=== PATIENT | female | born 1990 | race Caucasian/White ===

== ENCOUNTER 2022-02-15 08:00 | Outpatient (CLI) | payer OTHER ==
[2022-02-15 18:17] LABS: BASOPHILS # (AUTO) 0.1 10^3/uL (0.0-0.1); BASOPHILS % (AUTO) 0.8 %; EOSINOPHILS % (AUTO) 0.4 %; HCT - HEMATOCRIT 41.9 % (37.0-47.0); HGB - HEMOGLOBIN 13.3 g/dL (12.0-16.0); LYMPHOCYTES # (AUTO) 2.7 10^3/uL (1.5-3.5); LYMPHOCYTES % (AUTO) 32.2 %; MEAN CORPUSCULAR HEMOGLOBIN 29.3 pg (27.0-31.0); MEAN CORPUSCULAR HGB CONC 31.7 g/dL (32.0-36.0); MEAN CORPUSCULAR VOLUME 92.3 fL (81.0-99.0); MEAN PLATELET VOLUME 10.3 fL (7.9-10.8); MONOCYTES # (AUTO) 0.5 10^3/uL (0.0-1.0); MONOCYTES % (AUTO) 5.6 %; NEUTROPHILS # (AUTO) 5.1 10^3/uL (1.5-6.6); NEUTROPHILS % (AUTO) 60.8 %; PLT - PLATELET COUNT 514 10^3/uL (130-450); RED BLOOD COUNT 4.54 10^6/uL (4.20-5.40); RED CELL DISTRIBUTION WIDTH 12.8 % (12.0-15.0); WHITE BLOOD COUNT 8.5 x10^3/uL (4.8-10.8)
== END 2022-02-15 23:59 | disposition home or self-care (01) ==
LOC: LAB.N 08:00
PROVIDERS: ATTEND Physician Assistant
DX: R53.83 Other fatigue (principal)
CPT/HCPCS: 36415; 85025

== ENCOUNTER 2022-05-14 06:57 | Outpatient (CLI) | payer OTHER ==
[2022-05-14] MEDS ORDERED: GADOBUTROL 10 MMOL/10 ML VIAL ONE (07:12)
--- NOTE | 2022-05-14 12:07 | MRI Report ---
PROCEDURE: BRAIN W/WO INDICATIONS: DIZZINESS CONTRAST: gadavist 10ml TECHNIQUE: Noncontrast axial T1 spin echo, axial T2 fast spin echo, sagittal and axial FLAIR, coronal T2 fast sp in echo, axial gradient echo, axial diffusion and ADC through the brain. After the administration of contrast, axial and coronal T1 spin echo with fat saturation through the brain. COMPARISON: None. FINDINGS: Image quality: Excellent. CSF spaces: Basal cisterns are patent. No extra-axial fluid collections. Ventricles are normal in size and shape. Brain: No midline shift. No intracranial bleeds or masses. No abnormal intracranial enhancement. There is cerebral volume loss for age. There is periventricular white matter chronic small vessel is chemic change. The brainstem appears normal. Diffusion-weighted images demonstrate no acute ischemi c insults. No chronic ischemic insults. Normal intravascular flow voids are present. Skull and face: Calvarial marrow is normal in signal. Orbits appear normal. Sinuses: Sinuses and mastoids appear clear. IMPRESSION: 1. No acute intracranial abnormality. No explanation for dizziness. 2. No acute process. No recent infarct. Reviewed by: Lynnette Nguyễn MD on 05/14/2022 12:06 PM PDT Approved by: Lynnette Nguyễn MD on 05/14/2022 12:06 PM PDT Station ID: [id number]
[2022-05-14] MEDS ORDERED: GADOBUTROL 10 MMOL/10 ML VIAL IVP ONE (12:24)
== END 2022-05-14 06:58 | disposition home or self-care (01) ==
LOC: DI 06:57
PROVIDERS: ATTEND Student in an Organized Health Care Education/Training Program
DX: R42 Dizziness and giddiness (principal); R09.81 Nasal congestion
CPT/HCPCS: 70553; A9585

== ENCOUNTER 2022-07-02 14:20 | Outpatient (CLI) | payer OTHER ==
--- NOTE | 2022-07-02 12:51 | Sleep Patient Instructions ---
Sleep Center Visit Summary - Patient Visit Information Reason for Visit: Initial evaluation for possible sleep disordered breathing or other sleep issues. - Patient Instructions Instructions Attached: Sleep Clinic Visit, Sleep Lab Test Additional Instructions: You will be completing a sleep study, either an in-lab polysomnography (PSG) or home sleep study (HST). You will follow-up in the sleep care office after the sleep study is completed to hear the results and talk about therapy, if needed. You will be called by office staff to schedule this appointment but you may contact us with any questions. - Clinic Information Contact: [facility] [address] [place] [address] [email or web address] T: [phone]
[2022-07-02 15:33] VITALS: BP 128/80
--- NOTE | 2022-07-02 15:33 | SLEEP CARE CONSULTATION ---
Information from patient questionnaire entered by Mina De La Torre. I have reviewed and concur with the information entered by Mina De La Torre. This document represents the service I personally performed and the decisions made by me, Elsa Rodriguez ARNP. History of Present Illness Service Date and Time: 07/02/2022 1420 Reason for Visit: New patient Chief Complaint: reports: Unrefreshed sleep, Excessive daytime sleepiness, Observed pauses in breathing, Frequent awakenings at night Date of Onset: 2YRS Usual bedtime: 10-11PM Time it takes to fall asleep: 1HR Snores at night: Yes Observed to quit breathing while asleep: Yes Number of times waking at night: 3+ Reasons for waking at night: reports: Snoring, Gasping for air, Other (UNKNOWN) Toss, Turn, or Twitch while sleeping: Yes Recalls having dreams: Yes Usually gets out of bed at: 6AM; on weekends will go back to sleep for another hour Feels refreshed in the morning: No Morning headache: No (sometimes wakes up feeling dizzy) Sleepy or fatigued during the day: Yes Ever fallen asleep while driving: Yes (some drowsy driving in past 6 months) Takes day naps: No Dreams during day naps: Yes Prior sleep studies: No Additional HPI information: I had the pleasure of seeing PRUDENCE SILVA today regarding the possibility of her having a sleep disorder. Her current complaints are unrefreshed sleep, excessive daytime sleepiness, fatigue, frequent night awakenings and observed pauses in breathing. She states she is choking herself awake during the night for the last 2 years. She found out it was a problem and comes in for evaluation. She states the more tired she is she will notice herself stopping breathing before she completely falls asleep. She will wake up choking and gasping for air during the night. She is trying to sleep on her side to reduce the wake ups. She does snore. - Parasomnia Symptoms Ever been unable to move upon waking from sleep: No Walks in sleep: Yes (as a child but rarely as an adult) Talks in sleep: No (don't know, sleeps alone) Ever acted out dreams in sleep: No Ever felt weak in the knees when startled or emotional: Yes (only once, did not fall to ground) Bothered by creepy, crawly, restless sensations in legs: No Problems with memory or concentration: Yes (mostly concentration issues) Subjective Initial [place] Sleepiness Scale score: 20 (07/02/22) Past Medical History Past Medical History: reports: Other (no significant medical history) Social History The patient's occupation is a AM. Patient is and lives in . Have you smoked in the past 12 months: No Alcohol use: No Caffeine use: No Family History Family history of sleep disordered breathing: Yes Family Hx Sleep Apnea: Mother: Snoring, Sibling: Snoring, Sleep apnea - Untreated, Other: Sleep apnea - Treated (cousin has CPAP) Allergies and Home Medications Known drug allergies: Yes (PCN IBU) Drug allergies reviewed: Yes Home medication list reviewed: Yes (no daily medications) Review of Systems Weight gain over past 5 years: 60 Cardiovascular: denies: high blood pressure Gastrointestinal: denies: heartburn Neurological: denies: headaches Psychiatric: denies: Attention Deficit Hyperactivity, anxiety, depression Ear/Nose/Throat: reports: dry mouth/throat, wisdom teeth removed. denies: tonsillectomy Endocrine: denies: thyroid disease Immunologic: denies: allergies to food or environment Physical Exam Vital signs obtained and entered by: MINA Kirkland MA Blood Pressure: 128/80 (LEFT ARM) Cuff size: long Heart Rate: 86 O2 Saturation: 96 Height: 5 ft 4 in Weight: 252 lb 3.2 oz Body Mass Index: 43.2 BMI Classification: Morbidly Obese Neck circumference: 16.75 Mouth and throat: narrow oropharynx Soft palate: long Hard palate: normal Uvula: normal Uvula visualization: 0% Mallampati Class IV Tongue: enlarged in size with teeth payan on lateral edges Tonsils: 2+ Neck: normal w/o lymphadenopathy or thyromegaly Heart: regular rate and rhythm Lungs: clear bilaterally Impression and Plan 1. Suspected Obstructive Sleep Apnea-Hypopnea Syndrome, as suggested by a history of loud and irregular snoring, observed cessation of breath while asleep, gasping or choking in sleep, frequent awakening during the night, unrefreshed sleep, cognitive impairment, and excessive daytime sleepiness. Narrow oropharynx and obesity are common predisposing factors for obstructive sleep apnea-hypopnea syndrome. I recommend proceeding to polysomnography to confirm the diagnosis and to assess severity. If the patient has significant sleep disordered breathing, a manual CPAP titration study will also be performed to find the optimal treatment pressure. I informed the patient of what the sleep studies involve and after some discussion, obtained agreement to proceed. The pa thophysiology of obstructive sleep apnea-hypopnea syndrome was discussed with the patient and health risks of cardiovascular and cerebrovascular disease if not treated. Risks of drowsy driving discussed in detail and patient advised to avoid long distance driving and to pulling unit operator at the first sign of drowsiness. Patient agreed to plan. * Schedule polysomnography +- manual CPAP titration study and return in 1-2 weeks after the study to discuss result and initiate therapy. * Avoid long distance driving or driving when feeling sleepy. * Avoid alcohol, sedative and muscle relaxant around bedtime. * Attempt to lose weight. * Review instructions provided by trained office staff on how to prepare for the sleep study. * Return for follow-up after sleep study completed. Counseling Topics: Weight loss health impact Visit Type: In Office Time Spent with Patient (minutes): 32 Provider Statement: I spent 100% of the Face to Face Visit with the patient with greater than 50% spent counseling the patient and coordination of care.
== END 2022-07-02 14:21 | disposition home or self-care (01) ==
LOC: SC 14:20
PROVIDERS: ATTEND Nurse Practitioner Family
DX: R06.83 Snoring (principal); G47.8 Other sleep disorders; R06.81 Apnea, not elsewhere classified; R51.9 Headache, unspecified; G47.10 Hypersomnia, unspecified; R53.83 Other fatigue; E66.01 Morbid (severe) obesity due to excess calories; Z68.41 Body mass index [BMI] 40.0-44.9, adult
CPT/HCPCS: 99203; 99212